=== PATIENT | female | born 1990 | race Caucasian/White ===

== ENCOUNTER 2017-05-23 10:00 | Emergency (ER) | payer SELFPAY, OTHER ==
[2017-05-23] MEDS ORDERED: DIPHTH,PERTUSS(ACELL),TET TOX 0.5 ML DISP.SYRIN. VAX IM (10:30)
[2017-05-23] MEDS: LIDOCAINE WITH 8.4% SOD BICARB 3 ML DISP.SYRIN. INJ (10:30)
== END 2017-05-23 11:08 | disposition home or self-care (01) ==
LOC: ER 10:00
DX: S61.011A Laceration without foreign body of right thumb without damage to nail, initial encounter (principal); F41.9 Anxiety disorder, unspecified; J45.909 Unspecified asthma, uncomplicated; F32.9 Major depressive disorder, single episode, unspecified; G43.909 Migraine, unspecified, not intractable, without status migrainosus; Z90.49 Acquired absence of other specified parts of digestive tract; Z90.710 Acquired absence of both cervix and uterus; Z98.51 Tubal ligation status; Z88.0 Allergy status to penicillin; Z91.041 Radiographic dye allergy status; W26.0XXA Contact with knife, initial encounter; Y93.89 Activity, other specified; Y92.89 Other specified places as the place of occurrence of the external cause; Y99.8 Other external cause status
CPT/HCPCS: 12002; 99283

== ENCOUNTER 2017-10-09 00:07 | Emergency (ER) | payer SELFPAY ==
[2017-10-09] MEDS: IV NORMAL SALINE 1000ML BAG 1,000 ML IV (01:01)
[2017-10-09] MEDS: PROCHLORPERAZINE 10 MG/2 ML VIAL. IV (01:04)
[2017-10-09] MEDS: KETOROLAC 30 MG/ML INJ. IV (01:05)
[2017-10-09] MEDS: diphenhydrAMINE 50 MG/ML VIAL IVP (01:05)
== END 2017-10-09 02:23 | disposition home or self-care (01) ==
LOC: ER 00:07
DX: G43.909 Migraine, unspecified, not intractable, without status migrainosus (principal); F41.9 Anxiety disorder, unspecified; J45.909 Unspecified asthma, uncomplicated; F32.9 Major depressive disorder, single episode, unspecified; Z90.49 Acquired absence of other specified parts of digestive tract; Z90.710 Acquired absence of both cervix and uterus; Z98.51 Tubal ligation status; Z88.0 Allergy status to penicillin; Z91.041 Radiographic dye allergy status
CPT/HCPCS: 96361; 96374; 96375; 99284; J0780; J1200; J1885; J7030